=== PATIENT | female | born 1945 | race Caucasian/White ===

== ENCOUNTER → 2017-01-14 | Outpatient (CLI) | payer OTHER, MEDICARE | LOC: CIMAGING 15:50 | PROVIDERS: ATTEND Obstetrics & Gynecology Gynecology | DX: N83.8 Other noninflammatory disorders of ovary, fallopian tube and broad ligament (principal); D25.1 Intramural leiomyoma of uterus | CPT/HCPCS: 76856-PO ==

== ENCOUNTER 2017-02-24 11:53 | Day surgery (SDC) | payer OTHER, MEDICARE ==
[2017-02-24] MEDS ORDERED: LIDOCAINE 1% 2 ML INJ ONE (12:14)
[2017-02-24 12:45] VITALS: PULSE 89
[2017-02-24] MEDS ORDERED: LR 1,000 ML IV ONE (12:56)
[2017-02-24] MEDS ORDERED: LIDOCAINE 1% 300 MG/30 ML SDV ONE (13:07)
[2017-02-24] MEDS ORDERED: BUPIVACAINE 0.5% 30 ML SDV ONE (13:07)
[2017-02-24] MEDS ORDERED: HEPARIN 1000 UNIT/1 ML MDV ONE (13:07)
--- NOTE | 2017-02-24 13:42 | PDGENHP ---
History & Physical Chief Complaint: Ovarian cancer, need for vascular access History of Present Illness: Recent dx of ovarian cancer. Has had definitive procedure. Now needs vascular access Pertinent Past, Social, Family History: hysterectomy Relevant Physical Exam: RRR. CTA. AA&O. No scar chest/lower neck Cardiorespiratory Assessment: CTA. RRR. No edema. preserved distal pulses. Risks beneftis and alternatives outlined. Written consent obtained after verbal confirmation of understanding
--- NOTE | 2017-02-24 14:01 | PDANEPAE ---
ANE Past Medical History - Cardiovascular History Hx Hypertension: No Hx Arrhythmias: No Hx Chest Pain: No Hx Coronary Artery / Peripheral Vascular Disease: No Hx CHF / Valvular Disease: No Hx Palpitations: No - Pulmonary History Hx COPD: No Hx Asthma/Reactive Airway Disease: No Hx Recent Upper Respiratory Infection: No Hx Oxygen in Use at Home: No Hx Sleep Apnea: No Sleep Apnea Screening Result - Last Documented: Negative - Endocrine History Hx Diabetes: Yes - Chronic Pain History Chronic Pain: No ANE Review of Systems Review of Systems: ANE Patient History - Allergies Allergies/Adverse Reactions: codeine Allergy (Severe, Verified 02/24/17 13:00) Vomiting hydrocodone [From Lortab] Allergy (Severe, Verified 02/24/17 13:00) morphine Allergy (Severe, Verified 02/24/17 13:00) Vomiting acetaminophen [From Lortab] Allergy (Verified 02/24/17 12:33) - Home Medications Home Medications: Aspirin 81mg (*) 81 mg 02/24/17 [Last Taken 02/22/17] Doxycycline Monohydrate 100 mg 02/24/17 [Last Taken 02/22/17] Glimepiride 2 mg 02/24/17 [Last Taken 02/22/17] Hydrochlorothiazide 25 02/24/17 [Last Taken 02/22/17] Multi-Vitamin Daily 02/24/17 [Last Taken 02/22/17] Omeprazole 40 mg 02/24/17 [Last Taken 02/22/17] - NPO status NPO Since - Liquids (Date): 02/24/17 NPO Since - Liquids (Time): 00:00 NPO Since - Solids (Date): 02/23/17 NPO Since - Solids (Time): 20:30 ANE Labs/Vital Signs - Vital Signs Blood Pressure: 155/99 Heart Rate: 89 Respiratory Rate: 14 O2 Sat (%): 94 Height: 167.64 cm Weight: 81.647 kg ANE Physical Exam - Airway Neck exam: FROM Mallampati Score: Class 1 Mouth exam: normal dental/mouth exam - Pulmonary Pulmonary: no respiratory distress - Cardiovascular Cardiovascular: regular rate and rhythym - ASA Status ASA Status: II ANE Anesthesia Plan Anesthesia Plan: GA with mask
[2017-02-24] MEDS ORDERED: MIDAZOLAM 2 MG/2 ML VIAL ONE ×2 (14:04→14:07)
[2017-02-24] MEDS ORDERED: PROPOFOL/EMULSION 500 MG/50 ML BOTTLE IV ONE (14:08)
[2017-02-24] MEDS ORDERED: LIDOCAINE 2% 5 ML SDV ONE (14:09)
--- NOTE | 2017-02-24 14:46 | POSTOPPROG ---
Post Op Note Date of Operation: 02/24/17 Surgeon: Payam Mitchell Docking Pilot: none Anesthesiologist: Dulce Anesthesia: IV Sedation Pre-op Diagnosis: ovarian cancer need for Iv access Post-op Diagnosis: same Procedure: right IJ portacath 8 Fr slim Findings: good position in SVC Inf/Abcess present in the surg proc area at time of surgery?: No EBL: Minimal Specimen(s): none
[2017-02-24] MEDS ORDERED: KETOROLAC 15 MG/1 ML SDV IVP PRN (14:47)
[2017-02-24] MEDS ORDERED: NS 500 ML IV PRN (14:50)
[2017-02-24] MEDS ORDERED: ONDANSETRON 4 MG/2 ML VIAL IVP PRN (14:50)
[2017-02-24] MEDS ORDERED: NALOXONE HCL 0.4 MG/ML INJ IVP PRN (14:50)
[2017-02-24] MEDS ORDERED: HYDROmorphONE/DILAUDID 1 MG/ML INJ IVP PRN (14:50)
[2017-02-24] MEDS ORDERED: MIDAZOLAM 2 MG/2 ML VIAL IVP ONE (14:51)
--- NOTE | 2017-02-24 14:52 | POSTANESTH ---
Post Anesthetic Evaluation Cardiovascular Status: Normal, Stable Respiratory Status: Normal, Stable Level of Consciousness/Mental Status: Can Participate in Eval Pain Control: Adequate, Prn Tx Ordered Nausea/Vomiting Control: Adequate, Prn Tx Ordered Complications Possibly Related to Anesthesia: None Noted
[2017-02-24] MEDS ORDERED: KETOROLAC 15 MG/1 ML SDV ONE (15:15)
[2017-02-24 15:31] VITALS: RESP 18
[2017-02-24] MEDS ORDERED: ACETAMINOPHEN 325 MG TAB ONE (16:50)
[2017-02-24] MEDS ORDERED: ACETAMINOPHEN 325 MG TAB PO ONE (17:00)
[2017-02-24 17:17] VITALS: BP 143/95; TEMP 97.3; O2SAT 93
--- NOTE | 2017-02-24 21:08 | GOP ---
[f rep st] OPERATIVE REPORT DATE OF OPERATION: SURGEON: Payam Mitchell MD ANESTHESIA: Monitored anesthesia care. ANESTHESIOLOGIST: Zachery Cardona MD. PREOPERATIVE DIAGNOSIS: Ovarian cancer, poor intravenous access. POSTOPERATIVE DIAGNOSIS: Ovarian cancer, poor intravenous access. PROCEDURE PERFORMED: Port-A-Cath placement, right internal jugular vein. FINDINGS: Good placement in the internal jugular vein without difficulty, single stick. INDICATIONS: This is a 71-year-old patient of Dr. Osvaldo De Anda and Vi Preston who presents with ovarian cancer. She has need for IV access for chemotherapy. DESCRIPTION OF PROCEDURE: The patient was brought into the operating room. After identification of the patient by 2 independent variables, she had IV sedation established in the supine position. Her neck was prepped with chlorhexidine. Time-out procedure was then performed according to institutional standards. The patient was placed in Trendelenburg for appropriate access. Ultrasound-guided single stick of the internal jugular vein was performed, and the maintenance of the vein was done with Seldinger technique. Confirmation was performed with fluoroscopy, and a port site was then created in the right chest. Port was tunneled into the appropriate position and obturator and introducer sheath were placed over the wire. This was confirmed with fluoroscopy. The catheter was appropriately truncated approximately 15 cm from the insertion site and placed in through the introducer sheath. The introducer sheath was peeled away, and the placement was confirmed with fluoroscopy. There was a gentle curve, without any signs of kinking of the catheter. The catheter was confirmed to have good draw and flush , and it was locked with heparin and saline. It was secured laterally using a single 3-0 Prolene suture, and the insertion and port sites were closed using 4- 0 Monocryl in double-layer fashion. Dermabond was applied. The patient was awakened fully and taken to the recovery room in stable condition. Portable chest x-ray is pending. /[id number]/MODL MTDD
== END 2017-02-24 17:00 | disposition home or self-care (01) ==
LOC: FSGY 11:53
PROVIDERS: ATTEND Surgery
PROC: 05HM03Z Insertion of Infusion Device into Right Internal Jugular Vein, Open Approach (ICD-10-PCS; principal; 2017-02-24 13:30)
DX: C56.1 Malignant neoplasm of right ovary (principal); I10 Essential (primary) hypertension; E11.9 Type 2 diabetes mellitus without complications
CPT/HCPCS: C1788; J1642; J1644; J1885; J2250; J2704

== ENCOUNTER → 2018-04-01 | Outpatient (CLI) | payer OTHER, MEDICARE | LOC: FIMAGING 09:46 | PROVIDERS: ATTEND Family Medicine | DX: Z12.31 Encounter for screening mammogram for malignant neoplasm of breast (principal) ==

== ENCOUNTER → 2018-07-18 | Day surgery (SDC) | payer OTHER, MEDICARE ==
--- NOTE | 2018-07-17 12:25 | SOAPPROG ---
SOAP Progress Note Assessment/Plan: HISTORY AND PHYSICAL: Name KERRI MANZO (72yo, F) ID# [id number] 1945 [address] MAIN OFFICE Provider KJ MANRIQUE M.D. Insurance Med Primary: [place]ARE[place] (MEDICARE) Insurance # : [id number] Med Secondary: A[employer] (MEDICARE SUPPLEMENT) Insurance # : [id number] Prescription: ORX - Member is eligible. details Chief Complaint None recorded. Vitals None recorded. Allergies Allergies not reviewed (last reviewed 06/14/2018) NKDA Medications Reviewed Medications atorvastatin 10 mg tablet 06/09/18 filled [facility] citalopram 10 mg tablet 05/06/18 filled [facility] fluconazole 150 mg tablet 06/13/18 filled [facility] glimepiride 2 mg tablet 03/29/18 entered [facility] glimepiride 4 mg tablet 06/17/18 filled [facility] hydroCHLOROthiazide 25 mg tablet 03/29/18 entered [facility] lisinopril 20 mg tablet 06/07/18 filled [facility] raNITIdine 150 mg tablet 04/10/18 filled [facility] Shingrix (PF) 50 mcg/0.5 mL intramuscular suspension, kit 06/13/18 filled [facility] Vaccines None recorded. Problems Reviewed Problems No known problems Arthritis of acromioclavicular joint - Onset: 06/26/2018, Left Shoulder pain - Onset: 06/26/2018, Left Biceps tendinitis - Onset: 06/26/2018, Left Impingement syndrome of shoulder region - Onset: 06/26/2018, Left Family History Family History not reviewed (last reviewed 06/14/2018) Social History Social History not reviewed (last reviewed 06/14/2018) Smoking Status: Former smoker Non-smoker Occupation: [employer] Employer: [employer] Chewing tobacco: none Alcohol intake: None Alcohol-years of use: 0 Caffeine intake: Occasional Illicit drugs: none Exercise level: None Sporting activities: walking Hand Dominance: Right Education: 4 Year College Live alone or with others?: with others Surgical History Surgical History not reviewed (last reviewed 06/14/2018) Oncology Surgery - 03/28/2016 Gastrointestinal Surgery - 03/28/2012 Orthopaedic Surgery - 03/28/2012 Orthopaedic Surgery - 03/28/1990 Orthopaedic Surgery - 03/28/1989 [employer] EM[employer]OY[employer] History (not configured) Obstetric History None recorded. Past Pregnancies None recorded. Past Medical History Past Medical History not reviewed (last reviewed 06/14/2018) Cancer: Y Diabetes: Y Screening None recorded. 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 Virk -12/2017- left shoulder pain after lifting a bag of dog food under a shopping cart at work -03/23/18- left shoulder radiographs -- evidence of TALA, Type 2 acromion, moderate AC joint arthritis -03/24/18- left shoulder MRI - mild tendinopathy distal supraspinatus tendon with minimal partial tear, infraspinatus tendinitis, subacromial bursitis, partial labral tear, biceps tendinitis, moderate AC joint OA, impingement -03/29/18- left shoulder subacromial space injection with limited relief -04/19/18- left shoulder glenohumeral injection with limited relief -05/24/18- left shoulder bicipital groove injection with no relief -06/09/18- left shoulder AC joint injection with no relief She presents today for further evaluation of her left shoulder. Currently, she reports primarily left anterior shoulder pain which radiates into her left proximal arm. ROS ROS as noted in the HPI Physical Exam Patient is a 72-year-old female. Bilateral shoulder examination Inspection/palpation: Right: Normal resting posture. Left: TTP overlying the bicipital groove. Shoulder ROM (R / L / Normal) Forward flexion: 170 / 130 active (140 passive) / 170 Abduction: 160 / 90 active (115 passive) / 160 Extension: 40 / 30 / 40 Shoulder strength (R / L / Normal) Deltoid: 5/ 3 / 5 Biceps: 5/ 3 / 5 Shoulder sensory (R / L / Normal) Axillary: + / + / + Shoulder tests Stability tests OBriens: - / + / - Apprehension: - / - / - Relocation: - / - / - Jerk: - / - / - Rotator cuff tests Empty can: - / + / - Belly press: - / + / - Lift off : - / - / - Impingement tests Sanjuanita: - / + / - Neer: - / + / - Cross-arm adduction: - / + / - Biceps test Speeds: - / + / - Yergason supination: - / - / - Assessment / Plan 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 Virk -12/2017- left shoulder pain after lifting a bag of dog food under a shopping cart at work -03/23/18- left shoulder radiographs -- evidence of TALA, Type 2 acromion, moderate AC joint arthritis -03/24/18- left shoulder MRI - mild tendinopathy distal supraspinatus tendon with minimal partial tear, infraspinatus tendinitis, subacromial bursitis, partial labral tear, biceps tendinitis, moderate AC joint OA, impingement -03/29/18- left shoulder subacromial space injection with limited relief -04/19/18- left shoulder glenohumeral injection with limited relief -05/24/18- left shoulder bicipital groove injection with no relief -06/09/18- left shoulder AC joint injection with no relief For the left shoulder: - I have discussed with the patient the risks, benefits, alternatives and complications associated with both non-operative (specifically, observation, activity modification, physical therapy, NSAIDs, biceps injection) and operative (specifically, left shoulder arthroscopy with SAD, DCE, labral debridement, LHB tenotomy and possible rotator cuff debridement and/or repair) forms of treatment - The patient fully understands the risks, benefits, alternatives, and complications associated with these forms of treatment and wishes to proceed with operative intervention as outlined above - Of note, I have explained to the patient that she is at a greater risk for complications due to her poorly controlled DM - She has signed the informed consent form for surgery and surgery will be scheduled for the near future. 1. Shoulder pain - Left M25.512: Pain in left shoulder 2. Biceps tendinitis - Left M75.22: Bicipital tendinitis, left shoulder BICEPS TENDINITIS: EXERCISES 3. Arthritis of acromioclavicular joint - Left M13.812: Other specified arthritis, left shoulder 4. Impingement syndrome of shoulder region - Left - M75.42: Impingement syndrome of left shoulder Return to Office None recorded. Encounter Sign-Off Encounter signed-off by Kj Manrique M.D. 07/17/18 12:23 ICD10 Worksheet Patient Problems: Problems Problem Status Onset Left shoulder pain Acute - ICD10 Problem Qualifiers (1) Left shoulder pain
[~2018-07-18] MED LIST: ACETAMINOPHEN 500 MG TAB PO PRN; BUPIVACAINE 0.5% 30 ML SDV ONE; EPINEPHrine 30 MG/30 ML MDV (0.1 MG/0.1 ML) ONE; HYDROmorphONE/DILAUDID 2 MG TAB ONE; HYDROmorphONE/DILAUDID 2 MG TAB PO ONE; LIDO/EPI 1% **Not for Epidural 20 ML MDV ONE; LIDOCAINE 1% 300 MG/30 ML SDV ONE; LIDOCAINE 2% 100 MG/5 ML SYR ONE; LR 1,000 ML IV ONE; MIDAZOLAM 2 MG/2 ML VIAL IVP ONE; NALOXONE HCL 0.4 MG/ML INJ IVP PRN; ONDANSETRON 4 MG/2 ML VIAL IVP PRN; PROMETHAZINE HCL 25 MG/ML INJ IVP PRN; PROMETHAZINE HCL 25 MG/ML INJ ONE; PROPOFOL/EMULSION 500 MG/50 ML BOTTLE IV ONE; ceFAZolin 2 GM/DEXTROSE 100 ML IV ONE; fentaNYL 100 MCG/2 ML INJ IV ONE; fentaNYL 100 MCG/2 ML INJ ONE; oxyCODONE IR 5 MG TAB PO PRN
--- NOTE | 2018-07-18 08:34 | CPEKG ---
Test Reason : OPEN Blood Pressure : / mmHG Vent. Rate : 058 BPM Atrial Rate : 057 BPM P-R Int : 147 ms QRS Dur : 099 ms QT Int : 443 ms P-R-T Axes : 041 -32 013 degrees QTc Int : 436 ms Sinus rhythm Left axis deviation Low voltage, precordial leads Confirmed by Regino Story ([id number]) on 07/18/2018 8:33:27 AM Referred By: Kj Alonso Confirmed By:Regino Story
--- NOTE | 2018-07-18 08:55 | PDHPUP ---
History & Physical Update H&P update statement: This history and physical update is based on an assessment of the patient which was completed after admission or registration (within 24 hours), but prior to the surgery/procedure. H&P update: H&P reviewed & patient examined
--- NOTE | 2018-07-18 08:56 | PDANEPAE ---
ANE History of Present Illness L shoulder injury here for arthroscopy ANE Past Medical History - Cardiovascular History Hx Hypertension: Yes Hx Arrhythmias: No Hx Chest Pain: No Hx Coronary Artery / Peripheral Vascular Disease: No Hx CHF / Valvular Disease: No Hx Palpitations: No - Pulmonary History Hx COPD: No Hx Asthma/Reactive Airway Disease: No Hx Recent Upper Respiratory Infection: No Hx Oxygen in Use at Home: No Hx Sleep Apnea: Yes - Neurologic History Hx Cerebrovascular Accident: No Hx Seizures: No Hx Dementia: No - Endocrine History Hx Diabetes: Yes Endocrine History Comment: DM2 on glimepiride. - Renal History Hx Renal Disorders: No - Liver History Hx Hepatic Disorders: No - Neurological & Psychiatric Hx Hx Neurological and Psychiatric Disorders: Yes Neurological / Psychiatric History Comment: Depression r/t cancer diagnosis. - Cancer History Hx Cancer: Yes Cancer History Comment: R ovarian cancer s/t stage 2A, s/p surgery, chemotherapy (last chemo 06/16/17). - Congenital Disorder History Hx Congenital Disorders: No - GI History Hx Gastrointestinal Disorders: Yes Gastrointestinal History Comment: GERD. - Other Health History Other Health History: L shoulder RTC tear and bicep problem. 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 Upper denture. - Chronic Pain History Chronic Pain: No - Surgical History Prior Surgeries: R port placement 02/24/17. R port removal 10/2017. Hyst and BSO 12/2016 @ [facility]. R hand repair 2012. Cholecystectomy 2012. Cervical fusion w/ cadaver bone 1990. L ankle repair 1989. Tonsillectomy 1959 ANE Review of Systems Review of Systems: - Exercise capacity METS (RN): 4 METS ANE Patient History - Allergies Allergies/Adverse Reactions: codeine Allergy (Severe, Verified 02/24/17 13:00) Vomiting hydrocodone [From Lortab] Allergy (Severe, Verified 02/24/17 13:00) morphine Allergy (Severe, Verified 02/24/17 13:00) Vomiting - Home Medications Home Medications: Glimepiride 4 mg 02/24/17 [Last Taken 07/17/18] Hydrochlorothiazide 25 mg 02/24/17 [Last Taken 07/17/18] Alpha Lipoic Acid 600 mg PO 07/07/18 [Last Taken 07/11/18] Atorvastatin Calcium [Lipitor 10 mg (*)] 10 mg PO DAILY 07/07/18 [Last Taken 05:00] Cholecalciferol (Vitamin D3) [Vitamin D3] 5,000 unit PO 07/07/18 [Last Taken ] Citalopram [CeleXA] 20 mg PO 07/07/18 [Last Taken 1 Day Ago ~07/17/18] Ibuprofen 400 mg PO PRN 07/07/18 [Last Taken 07/11/18] Lisinopril [Zestril 20 mg (*)] 20 mg PO DAILY 07/07/18 [Last Taken 07/17/18] Loratadine mg PO 07/07/18 [Last Taken 07/11/18] Ranitidine HCl 150 mg PO 07/07/18 [Last Taken 07/18/18 05:00] - NPO status NPO Status: no food or drink >8 hours NPO Since - Liquids (Date): 07/18/18 NPO Since - Liquids (Time): 05:00 NPO Since - Solids (Date): 07/17/18 NPO Since - Solids (Time): 20:00 - Anes Hx Anes Hx: post operative nausea and vomiting - Smoking Hx Smoking Status: Former smoker - Alcohol Use Alcohol Use: None - Family Anes Hx Family Hx Anesthesia Complications: Sister-vomiting. ANE Labs/Vital Signs - Labs Result Diagrams: 07/18/18 07:53 - Vital Signs Blood Pressure: 130/71 Heart Rate: 57 Respiratory Rate: 15 O2 Sat (%): 97 Height: 167.64 cm Weight: 90.718 kg ANE Physical Exam - Airway Neck exam: FROM Mallampati Score: Class 2 Mouth exam: poor dentition, dentures (upper) - Pulmonary Pulmonary: no respiratory distress - Cardiovascular Cardiovascular: regular rate and rhythym - ASA Status ASA Status: III ANE Anesthesia Plan Anesthesia Plan: GA w LMA Regional Anesthesia: single shot NB, interscalene BP NB Total IV Anesthesia: Yes
--- NOTE | 2018-07-18 11:16 | POSTANESTH ---
Post Anesthetic Evaluation Cardiovascular Status: Normal, Stable, Similar to Pre-Op Cond Respiratory Status: Normal, Stable, Similar to Pre-op Cond. Level of Consciousness/Mental Status: Can Participate in Eval, Alert and Oriented Pain Control: Adequate, Prn Tx Ordered Nausea/Vomiting Control: Adequate, Prn Tx Ordered Complications Possibly Related to Anesthesia: None Noted
[2018-07-18] MEDS: fentaNYL 100 MCG/2 ML INJ IVP PRN ×2 (11:38→12:06)
--- NOTE | 2018-07-18 18:02 | POSTANESTH ---
Post Anesthetic Evaluation Cardiovascular Status: Normal, Stable, Similar to Pre-Op Cond Respiratory Status: Similar to Pre-op Cond. Level of Consciousness/Mental Status: Can Participate in Eval, Mildly Sleepy, Arousable Pain Control: Adequate, Prn Tx Ordered (Left interscalene block performed in PACU due to intractable shoulder pain. CHG prep, U/S used to inject 20 ml 1/4% bupiv around brachial plexus incrementally. No evident complications. 10 minutes later, pain nearly gone.) Nausea/Vomiting Control: Adequate, Prn Tx Ordered Complications Possibly Related to Anesthesia: None Noted
--- NOTE | 2018-07-18 18:20 | PDHOMEO2F ---
Home Oxygen Face to Face Home Orders: I certify that a physician or a nurse practitioner or physician's library serials assistant has had a [id number] encounter with this patient on the date of this order due to the diagnosis listed, which relates to the primary reason the patient requires home oxygen. Alternative treatments have been tried, or considered, and deemed ineffective. It is anticipated that supplemental oxygen will result in improvement with treatment. Home oxygen qualifying diagnosis: Postoperative hypoxia SpO2 on room air (%): 88 Frequency of home oxygen needed: continuous Home oxygen liters per minute: 1-2 Home oxygen delivery device: nasal cannula Concentrator: Yes E-tanks for mobility and back up: Yes If ordering portable O2, is the patient mobile in the home?: Yes I certify that, based on these findings, the home oxygen is medically necessary for this patient for the following length of time. Length of time home oxygen needed: 1 week (Likely need only 1-2 days.)
[2018-07-18 18:30] VITALS: BP 130/87
--- NOTE | 2018-07-19 03:36 | GOP ---
[f rep st] OPERATIVE REPORT PATIENT: KERRI MANZO DATE OF SERVICE: 07/18/18 PATIENT DATE OF : 1945 SURGEON: Kj Alonso M.D. WALLP[employer]ER [employer]MB[employer]ER HELPER: Teresita Hearn PA-C Mrs. Martin assistance was medically necessary for patient positioning and the retraction of vital structures. ANESTHESIA: General / regional anesthesia PRE-OPERATIVE DIAGNOSES: Left shoulder subacromial impingement (ICD-10 code M75.50 bursitis of shoulder) Left shoulder acromioclavicular joint arthritis (ICD-10 code M13.119 acromioclavicular joint arthritis) Left shoulder SLAP tear (ICD-10 code S43.439S Superior glenoid labrum lesion of shoulder) Left shoulder biceps tenosynovitis (ICD-10 code M75.20 bicipital tendinitis of shoulder) POST-OPERATIVE DIAGNOSES: Left shoulder subacromial impingement (ICD-10 code M75.50 bursitis of shoulder) Left shoulder acromioclavicular joint arthritis (ICD-10 code M13.119 acromioclavicular joint arthritis) Left shoulder SLAP tear (ICD-10 code S43.439S Superior glenoid labrum lesion of shoulder) Left shoulder biceps tenosynovitis (ICD-10 code M75.20 bicipital tendinitis of shoulder) OPERATIVE PROCEDURES: CPT code 74007 Left shoulder arthroscopic subacromial decompression CPT code 02285 -- Left shoulder arthroscopic debridement, extensive CPT code 26791 Left shoulder arthroscopic distal clavicle excision CPT code 62891 Left shoulder long head of biceps tenotomy EBL: 2cc COMPLICATIONS: None IMPLANTS: None BRIEF CLINICAL NOTE: This is a very pleasant 72 year old female with a significant history for left shoulder subacromial impingement, acromioclavicular joint arthritis, degenerative labral tears, and long head of biceps tendinitis. As such, I have discussed the risks, benefits, alternatives , and complications associated with both non-operative (specifically, observation, activity modifications, NSAIDs, PT, injection) and operative ( specifically, left shoulder arthroscopy with subacromial decompression, distal clavicle excision, labral debridement, and long head of biceps tenotomy) forms of treatment. The patient fully understands the risks, benefits, alternatives, and complications associated with both forms of treatment and wishes to proceed with operative intervention as outlined above. The patient has signed the informed consent form for surgery. OPERATIVE NOTE: On the day of surgery, all of the patients questions were answered. The patient was then transferred from the pre-operative area into the operating room and a formal, Time-Out procedure was performed. The patient was identified by name, medical record number, social security number, and date of . In addition, the patients left upper extremity was identified as the correct portion of the patients body for surgery with the patients left shoulder being identified as the correct portion of that extremity for surgery. The anesthesia team administered pre-operative antibiotics for prophylaxis. The patient was transferred to the operating room table and placed in the beach chair position while padding all bony prominences. The extremity was then prepped and draped in the normal sterile fashion. A sterile marking pen was then utilized to richy out standard posterior, lateral , and anterior arthroscopic portal incisions. An 18-gauge spinal needle was utilized to localize the glenohumeral joint and the joint was insufflated with 60cc of a 50:50 mixture of 1% lidocaine with 1:200,000 components of epinephrine and normal saline. A number 11-blade was utilized to make the posterior portal incision. The blunt obturator and arthroscopic cannula were then advanced through the posterior portal incision into the glenohumeral joint. The arthroscope was then inserted and the shoulder was brought into external rotation. An 18-gauge spinal needle was utilized to create the anterior portal with outside-in technique. A medium-sized Athrex corkscrew cannula was then inserted through the anterior portal incision. A diagnostic arthroscopy was performed in the glenohumeral space. The following structures were identified and examined with the following findings: Glenohumeral diagnostic arthroscopy Glenoid: minimal degenerative change Humeral head: intact Glenoid labrum: degenerative fraying superiorly and anteriorly Biceps tendon: partial thickness tearing at insertion point Glenohumeral ligaments: SGHL: intact MGHL: intact AIGHL: intact PIGHL: intact Undersurface of rotator cuff: Subscapularis: intact Supraspinatus: intact Infraspinatus: intact The 4.0mm aggressive cutter was then inserted through the anterior portal and an extensive debridement was performed within the glenohumeral joint including the labrum and the long head of biceps tendon. The cautery wand was inserted through the anterior portal and the long head of the biceps tendon was released off of the supraglenoid tubercle (long head of biceps tenotomy). The arthroscope was then withdrawn from the glenohumeral joint and posterior cannula was re-directed into the subacromial space. The arthroscope was then re -inserted into the posterior cannula. An 18-gauge spinal needle was used to create a straight lateral portal with outside-in technique. A large Arthrex corkscrew cannula was then inserted through the lateral portal incision. The 4.0mm aggressive cutter and the cautery wand were utilized to excise the subacromial-subdeltoid bursa. At this point, a diagnostic arthroscopy was performed in the subacromial space. The following structures were identified and examined with the following findings: Subacromial space diagnostic arthroscopy Subacromial / subdeltoid bursa: hypertrophic and inflamed Acromion: undersurface spurring Coracoacromial ligament: intact Acromioclavicular joint: undersurface spurring and arthritis Bursal surface of rotator cuff muscles: Supraspinatus: intact Infraspinatus: intact The 4.0mm barrel kandice was then utilized to perform both an acromioplasty as well as an arthroscopic distal clavicle excision. Meticulous hemostasis was obtained throughout the subacromial space with the cautery wand. Final arthroscopic pictures were taken, saved, and printed. The arthroscope and all instruments were then removed from the joint. All wounds were copiously irrigated with sterile normal saline. The subcutaneous plane was re-approximated with 3-0 vicryl sutures and the skin was re-approximated with a running 4-0 moncryl. The skin was cleaned with sterile normal saline and dried. Dermabond was applied to all of the incisions followed by Xeroform gauze dressings, a dry sterile dressing, and an occlusive tegaderm dressing. The arm was then placed into a sling and swathe. The patient was reversed from anesthesia and transferred from the operating room table onto the post-operative gurney and transferred from the operating room to the post-anesthesia care unit in stable condition. POST-OPERATIVE PLAN: The patient will remain in the current dressing and sling for the next week. The patient will follow-up in one week for a wound check and initiation of forearm, elbow, and shoulder ROM exercises. /[id number]/MODL MTDD
== END | disposition home or self-care (01) ==
LOC: FSGY 07:20
PROVIDERS: ATTEND Orthopaedic Surgery Hand Surgery
PROC: 0LS24ZZ Reposition Left Shoulder Tendon, Percutaneous Endoscopic Approach (ICD-10-PCS; principal; 2018-07-18 08:45)
PROC: 0PBB4ZZ Excision of Left Clavicle, Percutaneous Endoscopic Approach (ICD-10-PCS; principal; 2018-07-18 08:45)
PROC: 0MB24ZZ Excision of Left Shoulder Bursa and Ligament, Percutaneous Endoscopic Approach (ICD-10-PCS; principal; 2018-07-18 08:45)
DX: M25.812 Other specified joint disorders, left shoulder (principal); M13.812 Other specified arthritis, left shoulder; M75.102 Unspecified rotator cuff tear or rupture of left shoulder, not specified as traumatic; M75.22 Bicipital tendinitis, left shoulder
CPT/HCPCS: J0171; J0690; J2001; J2250; J2550; J2704; J3010